=== PATIENT | male | born 1985 | race Caucasian/White ===

== ENCOUNTER 2018-03-26 12:10 | Emergency (ER) | payer OTHER ==
[~2018-03-26] VITALS: Ht 170.2 cm; Wt 115.7 kg
[2018-03-26 13:05] VITALS: BP 159/102
--- NOTE | 2018-03-26 14:20 | NUR ---
32/M BIB SELF, C/O OF LEFT CALF PAIN X1 DAY, PATIENT STATES HE WAS PLAYING WITH HIS CHILDREN JUMPING, FELT CALF MUSCLE TENSE UP. STATES BURNING PAIN IS 8/10 WITH AMBULATION, CMS INTACT, NO OBVIOUS TRAUMA/DEFORMITY, COLOR IS LEGS IN APPROPRIATE FOR ETHNICITY, <3 CAP REFILL, BILATERAL EQUAL PEDAL PULSES. DENIES TINGLING OR NUMBNESS. BREATHING IS EVEN AND UNLABORED, DENIES SOB, CP, NO ACUTE DISTRESS NOTED.
[2018-03-26 17:08] VITALS: BP 150/102
== END 2018-03-26 17:07 | disposition home or self-care (01) ==
LOC: MED 12:10
DX: M79.605 Pain in left leg (principal)
CPT/HCPCS: 93971; 99284; Q0092

== ENCOUNTER 2021-01-07 20:44 | Emergency (ER) | payer OTHER ==
[~2021-01-07] VITALS: Ht 170.2 cm; Wt 122.5 kg
--- NOTE | 2021-01-07 20:48 | NUR ---
MARIANNE LYNCH VIA GURNEY TO BED 02.
[2021-01-07 20:55] VITALS: BP 153/83
[2021-01-07] MEDS ORDERED: NACL 0.9% 2,000 ML IV ONE (21:05)
--- NOTE | 2021-01-07 22:15 | NUR ---
UA OBTAINED AND SENT TO LAB
[2021-01-07 22:41] LABS: BARBITURATE, URINE NEGATIVE ng/ml (NEG <=200); BENZODIAZEPINE, URINE NEGATIVE ng/mL (NEG <=200); CANNABINOID, URINE NEGATIVE ng/mL (NEG <=50); COCAINE, URINE POSITIVE ng/mL (NEG <=300)
[2021-01-07 22:42] LABS: OPIATE, URINE NEGATIVE ng/mL (NEG <=2000); PHENCYCLIDINE SCREEN,URINE NEGATIVE ng/mL (NEG <=25)
[2021-01-07 22:57] VITALS: BP 138/79
--- NOTE | 2021-01-07 22:58 | NUR ---
Patient discharged with v/s stable. Written and verbal after care instructions given and explained. Patient verbalized understanding. Ambulatory with steady gait. All questions addressed prior to discharge. Advised to follow up with PMD.
== END 2021-01-07 22:58 | disposition home or self-care (01) ==
LOC: MED 20:44
DX: T43.621A Poisoning by amphetamines, accidental (unintentional), initial encounter (principal); R00.2 Palpitations; F14.129 Cocaine abuse with intoxication, unspecified; Y92.89 Other specified places as the place of occurrence of the external cause
CPT/HCPCS: 80305; 93005; 96360; 99284; J7030

== ENCOUNTER 2021-02-10 01:27 | Emergency (ER) | payer OTHER ==
[~2021-02-10] VITALS: Ht 167.6 cm; Wt 122.5 kg
[2021-02-10 01:31] VITALS: BP 136/70
--- NOTE | 2021-02-10 01:31 | NUR ---
PT W/C ASSISTED TO ER BED 4
--- NOTE | 2021-02-10 01:39 | NUR ---
ONSET MONDAY MORNING PAIN TO RIGHT LEG WITH SWELLING
[2021-02-10] MEDS ORDERED: HYDROcodone/APAP 5/325 MG 1 TAB TAB PO ONE (02:55)
[2021-02-10] MEDS ORDERED: KETOROLAC 30 MG/ML VIAL IM ONE (02:55)
--- NOTE | 2021-02-10 03:19 | NUR ---
PT TAKEN TO RADIOLOGY
--- NOTE | 2021-02-10 03:24 | NUR ---
Note marielone in EDM - 02/10/21 at 0341 by OMAR Patient discharged with v/s stable. Written and verbal after care instructions given and explained. Patient alert, oriented and verbalized understanding of instructions. Ambulatory with steady gait. All questions addressed prior to discharge. ID band removed. Patient advised to follow up with PMD. Rx of tylenol and bactrim given. Patient educated on indication of medication including possible reaction and side effects. Opportunity to ask questions provided and answered.
--- NOTE | 2021-02-10 03:49 | NUR ---
Ultrasound at bedside.
[2021-02-10] MEDS ORDERED: ACET-8386 PO (05:23)
[2021-02-10] MEDS ORDERED: NAPR-54 PO (05:23)
--- NOTE | 2021-02-10 05:33 | NUR ---
PATIENT CLEARED FOR DISHCARGE AT THIS TIME. ADVISED TO FOLLOW UP WITH PCP AND RETURN IF OCNDITION WORSENS. NO FURTHER QUESTIONS FOLLOWING DISHCARGE TEACHING. CRUTCHES PROVIDED AND EDUCATION ON USE PROVIDED/
[2021-02-10 05:34] VITALS: BP 137/84
== END 2021-02-10 05:34 | disposition home or self-care (01) ==
LOC: MED 01:27
DX: M79.604 Pain in right leg (principal); I10 Essential (primary) hypertension; Z79.1 Long term (current) use of non-steroidal anti-inflammatories (NSAID); Z79.891 Long term (current) use of opiate analgesic
CPT/HCPCS: 73552; 73590; 93971; 96372; 99284; J1885; Q0092

== ENCOUNTER 2023-08-31 20:49 | Emergency (ER) | payer OTHER ==
[~2023-08-31] VITALS: Ht 170.2 cm; Wt 111.1 kg
[~2023-08-31 20:49] MED LIST: ACET-8905 PO; NAPR-337 PO
[2023-08-31 21:11] VITALS: BP 127/70; PULSE 85; RESP 19; TEMP 98.1; O2SAT 98
[2023-08-31] MEDS: KETOROLAC 30 MG/ML VIAL IM ONE (23:16)
[2023-08-31] MEDS: HYDROcodone/APAP 5/325 MG 1 TAB TAB PO ONE (23:16)
[2023-08-31 23:26] VITALS: BP 127/70; PULSE 85; RESP 19; TEMP 98.1; O2SAT 98
== END 2023-09-01 00:45 | disposition home or self-care (01) ==
LOC: MED 20:49
DX: S52.511A Displaced fracture of right radial styloid process, initial encounter for closed fracture (principal); S52.612A Displaced fracture of left ulna styloid process, initial encounter for closed fracture; S20.312A Abrasion of left front wall of thorax, initial encounter; S80.812A Abrasion, left lower leg, initial encounter; S09.90XA Unspecified injury of head, initial encounter; I10 Essential (primary) hypertension; Z79.899 Other long term (current) drug therapy; V29.888A Rider (driver) (passenger) of other motorcycle injured in other specified transport accidents, initial encounter; Y93.89 Activity, other specified; Y92.89 Other specified places as the place of occurrence of the external cause; Y99.8 Other external cause status
CPT/HCPCS: 29125; 70450; 71045; 72125; 73100; 96372; 99285; J1885; Q0092